=== PATIENT | male | born 1930 | race Caucasian/White ===

== ENCOUNTER 2017-06-01 19:10 | Inpatient (IN) | payer MEDICARE, BC ==
[~2017-06-01] VITALS: Ht 162.6 cm; Wt 70.0 kg
--- NOTE | ~2017-06-01 | HP ---
Unit #: [id number] #: [id number] Patient: MELVI CRESPO [id number] [address] [place], [place] [address] [id number] I MR#: [id number] NAME: MELVI CRESPO. ROOM: 568 Age: 86 Sex: M Admission Date: 06/01/2017 : 1930 Attending Physician: Ernesto Hamlin M.D. Primary Care Physician: Marquez Cavanaugh M.D. HISTORY AND PHYSICAL CHIEF COMPLAINT Shortness of breath. HISTORY OF PRESENT ILLNESS This is an 86-year-old gentleman who has a past medical history significant for history of endstage chronic obstructive pulmonary disease, oxygen dependent, diabetes, anxiety/depression, coronary artery disease, dementia with behavioral changes, hypertrophy, urinary retention with indwelling Claire catheter, hypertension, arthritis, dyslipidemia, hard of hearing. He lives alone. Primary care is his daughter, who frequently visits him. She is at the bedside. As per her, the patient recently has been having some violent hallucinations and he was taken to [facility] and was admitted to 23-hour observation. He was discharged on Saturday and was told to have urinary tract infection, was given some antibiotic and was discharged home. The daughter said he went to her house four days ago and has been having worsening shortness of breath and had oxygen saturation on the lower side. She said it was time to go to the emergency room, but he declined. With worsening symptoms today he told her he wanted to go to the emergency room and he came to [facility] and eventually has been admitted here for chronic obstructive pulmonary disease exacerbation. He is a rather poor historian. He denies any chest pain. He is having some dry cough, but no nausea or vomiting. No abdominal pain or any other complaints. PAST MEDICAL HISTORY 1. History of chronic obstructive pulmonary disease, endstage and oxygen dependent. 2. Diabetes. 3. Anxiety/depression. 4. Coronary artery disease with previous coronary artery bypass grafting. 5. Gastroesophageal reflux disease. 6. Dementia with behavioral changes. 7. Hypertrophy/urinary retention with indwelling Claire catheter. 8. Hypothyroid. 9. Hypertension. 10. History of arthritis. 11. Dyslipidemia. 12. Hard of hearing. PAST SURGICAL HISTORY 1. Appendectomy. 2. Coronary artery bypass grafting. 3. History of partial colon resection for diverticulitis. Unit #: [id number] #: [id number] Patient: MELVI CRESPO SOCIAL HISTORY The patient is a former smoker. He smoked his whole life, but quit 30 years ago. Denies alcohol Denies illicit drug use. Currently lives at home alone. FAMILY HISTORY Mother had stomach cancer. ALLERGIES No known drug allergies. HOME MEDICATIONS 1. Flomax 0.4 mg daily. 2. Singulair 10 mg daily. 3. Amantadine 10 mg daily. 4. Coreg 6.25 mg half tablet b.i.d. 5. Zoloft 100 mg at night. 6. Lorazepam 0.5 mg at night. 7. Prednisone 10 mg half tablet daily. 8. Protonix 40 mg at night. 9. Seroquel 25 mg at night. 10. Proscar 5 mg daily. 11. Glipizide 5 mg daily. 12. Levothyroxine 25 mcg daily. 13. Breo Ellipta inhaler 1 puff daily. 14. Albuterol nebulizer t.i.d. 15. Metformin 500 mg b.i.d. REVIEW OF SYSTEMS Negative except as per history of present illness. PHYSICAL EXAMINATION GENERAL: Elderly man lying in the bed comfortably. Currently not in any distress. He is alert, awake and oriented times one. VITALS: Currently, blood pressure 143/60, heart rate 80, respiratory rate 18, oxygen saturation 96%, temperature 98. HEENT: Pupils equal and reactive to light and accommodation. Head is normocephalic, atraumatic. NECK: Supple. No jugular venous distension. No thyromegaly. LUNGS: Poor air entry bilaterally. HEART: S1 and S2. Regular rate and rhythm. ABDOMEN: Soft, nontender and nondistended. Bowel sounds positive. EXTREMITIES: Inspection normal. No cyanosis. No clubbing. No edema. NEUROLOGIC: No focal neurologic deficits. Cranial nerves II through XII intact. Moving all extremities. SKIN: Warm and dry. DIAGNOSTIC STUDIES IMAGING: Chest x-ray shows trace pleural effusion versus chronic bilateral atelectasis with severe emphysema. LABORATORY: White blood cell count 6.9, hemoglobin 13, hematocrit 40, platelets 138. Urinalysis is negative. Sodium 136, potassium 4.4, chloride 101, CO2 27, glucose 191, BUN 9, creatinine 1.30. LFTs within normal limits. Lactic acid level 3.3. ABG, pH 7.39, CO2 43, O2 96. BNP 95, troponin 0.00. Unit #: [id number] #: [id number] Patient: MELVI CRESPO CARDIOVASCULAR: EKG, right bundle branch block. ASSESSMENT/PLAN 1. Acute exacerbation of chronic obstructive pulmonary disease, oxygen dependent. Will place the patient on IV Rocephin, Zithromax, nebulizer, IV Solu-Medrol. 2. Diabetes. Continue glipizide. Place on sliding scale. 3. History of endstage chronic obstructive pulmonary disease, oxygen dependent. 4. History of anxiety/depression. 5. Dementia with behavioral changes. Recently has been having hallucinations. 6. Coronary artery disease with previous coronary artery bypass grafting. 7. Gastroesophageal reflux disease. 8. History of (1) urinary retention with indwelling Claire catheter. 9. Hypothyroid on Synthroid. Recheck TSH. 10. History of hypertension. 11. Arthritis. 12. History of dyslipidemia. 13. Hard of hearing. 14. DVT prophylaxis. Will place the patient on Lovenox. Dictated by Stephanie Gallo TD: 06/02/2017 07:30 JOB #: [id number] HISTORY AND PHYSICAL Page 1 of 1 X X HISTORY AND PHYSICAL
--- NOTE | ~2017-06-01 | CO ---
Unit #: [id number] #: [id number] Patient: MELVI CRESPO [id number] [facility] [address] [facility]. [place], [place] [address] [id number] I MR#: [id number] NAME: MELVI CRESPO. ROOM: 568 Age: Sex: M Admission Date: 06/01/2017 : 1930 Attending Physician: Melanie Borrego M.D. Primary Care Physician: Marquez Cavanaugh M.D. Consultation Date: 06/02/2017 CONSULTATION REPORT REASON FOR CONSULTATION Hallucination, problem with memory, anxiety. HISTORY OF PRESENT ILLNESS Mr. Melvi Crepso is an 86-year-old white male, seen in room 568, bed 1 on 06/02/2017 at [facility]. The patient dressed casually in hospital attire, sitting comfortably in bed. The patient's family was at the bedside. The patient was somewhat hard of hearing. Reported seeing things, visual hallucination. The patient reported seeing people coming to his room, seeing numbers and alphabets on the wall. The patient also having trouble with anxiety, depression. Denied any suicidal or homicidal ideation. Denied any auditory hallucination or any command hallucination. The patient was, however, pleasant, cooperative, and was somewhat upset about these hallucination. The patient reports that he lives alone and has a caregiver. The patient was admitted due to shortness of breath in the hospital. The patient's vital signs; temperature 98.2, pulse rate 84, respirations 16, blood pressure 133/61, and oxygen saturation 95%. PAST PSYCHIATRIC HISTORY Remarkable for history of depression, anxiety, hallucination, and dementia. MEDICAL HISTORY Remarkable for history of COPD, end-stage oxygen-dependent; DNR; diabetes; anxiety; depression; coronary artery disease with bypass grafting; GERD; hypothyroidism; hypertension; dyslipidemia; poor hearing; arthritis. MEDICATION HISTORY The patient is on Flomax, Singulair, amantadine, Coreg, Zoloft 100 mg at bedtime, lorazepam 0.5 mg at bedtime, prednisone, Protonix, Seroquel 25 mg at bedtime, Proscar, glipizide, levothyroxine, albuterol, metformin. FAMILY HISTORY AND SOCIAL HISTORY The patient has a good support, but lives alone. No history of abuse or substance abuse. REVIEW OF SYSTEMS Complete review of system is unremarkable except as mentioned above. MENTAL STATUS EXAMINATION The patient's vital signs, please see above. General appearance; the patient dressed casually, sitting comfortably in bed. The patient was able to give information, no agitation, able to described hallucination. Attention span and concentration, poor. Speech, somewhat loud, but Unit #: [id number] #: [id number] Patient: MELVI CRESPO regular rate. Oriented in place and person, but noted some confusion. Mood and affect, labile. Thought process, circumstantial. Thought content, the patient denied any thoughts of harming self or others, but reported visual hallucination as mentioned above. Denied any command hallucination or auditory hallucination. Recent and remote memory, fair to slightly impaired. Language, fair. Fund of knowledge, fair to slightly impaired. Insight and judgment, fair to slightly impaired. DIAGNOSES Psychiatric: Major neurocognitive disorder secondary to Alzheimer disease with behavioral disturbances, F02.81; major depressive disorder, recurrent, severe, F33.2; psychosis, not otherwise specified, F29.0. Secondary diagnosis: Deferred. Medical diagnosis: Please refer to H and P. Stressors: Psychosocial stressors. ASSESSMENT/PLAN 1. Supportive psychotherapy and psychoeducation provided to the patient. 2. Educated about benefits and side effects of medication and course and prognosis of illness and also to the family. 3. Recommending at this time to discontinue Seroquel and replace that with Risperdal 0.5 mg b.i.d. Advised to lower the Zoloft to 50 mg at bedtime. Continue with Namenda. Advised to add trazodone 25 mg q.h.s. p.r.n. for sleep and Vistaril 25 mg b.i.d. Based on the current examination and the patient's functioning and current symptomatology, we are recommending that the patient should not be living by himself and needed to be in a supervised living facility. For which, we are recommending the patient's managed care liaison to discuss with family. Please feel free to call if any question, telephone #[phone]. Dictated by... Rc Diaz M.D. FLAKO/cayetano TD: 06/03/2017 12:24 JOB #: [id number] CONSULTATION REPORT Page 1 of 1 X Rc Diaz MD CONSULTATION REPORT
--- NOTE | ~2017-06-01 | CR63 ---
[facility] A Service of [facility] & [facility] RADIOLOGY TEXT RESULTS PATIENT: MELVI CRESPO LOCATION: [facility] 568-01 : [birth year] UNIT #: [id number] AGE: [address]: Melanie Borrego MD SEX: M ORDER DR: [id number] [facility] [address] [facility]. [place], [place] [address] [id number] MR#: [id number] Acc #: [id number] NAME: MELVI CRESPO. : 1930 SEX: M STUDY DATE/TIME: 06/03/2017 7:07 UNIT: [facility] ROOM: [facility] STUDY DESCRIPTION: CR Chest 2 View Attending Physician: Melanie Borrego M.D. Ordering Physician: Ernesto Hamlin M.D. Primary Care Physician: Marquez Cavanaugh M.D. MEDICAL IMAGING REPORT This report is preliminary unless electronic signature is present EXAM Chest PA and lateral, 06/03/2017. HISTORY Shortness of breath today, COPD exacerbation. Benign essential hypertension. Smoking history, coronary artery disease and coronary artery bypass graft surgery. FINDINGS The cardiac and mediastinal structures are stable compared with 06/01/2017 status post median sternotomy. Pleural thickening blunts the left costophrenic angle. There is discoid atelectasis at the lung bases. The lungs are otherwise clear. There are no pleural effusions. IMPRESSION Prior median sternotomy. No active pulmonary disease. Dictated by... Yohannes Daniels M.D. THIS IS AN ELECTRONICALLY VERIFIED REPORT Yohannes Daniels M.D. at 06/04/2017 7:16 AM KRT/derrick TD: 06/03/2017 13:29 JOB #: [id number] MEDICAL IMAGING REPORT Page 1 of 1 COPY
--- NOTE | ~2017-06-01 | CO ---
Unit #: [id number] #: [id number] Patient: MELVI CRESPO [id number] [address] [place], [place] [address] [id number] I MR#: [id number] NAME: MELVI CRESPO. ROOM: 568 Age: 86 Sex: M Admission Date: 06/01/2017 : 1930 Attending Physician: Melanie Borrego M.D. Primary Care Physician: Marquez Cavanaugh M.D. Consultation Date: 06/05/2017 CONSULTATION REPORT REASON FOR CONSULTATION Followup. DISCUSSION Mr. Melvi Crespo is an 86-year-old male, seen in room 558, bed 1 on 06/05/2017. The patient dressed casually, seems somewhat anxious, nervous, guarded. The patient was attending to internal stimuli. Extremely paranoid, some agitation, anxiety, poor memory, confusion. Vital signs; temperature 98.4, pulse 89, respirations 16, blood pressure 144/64, and oxygen saturation 100%. REVIEW OF SYSTEMS Complete review of system is unremarkable. MENTAL STATUS EXAMINATION General appearance; the patient dressed casually. Attention span and concentration, poor. Speech, rapid. Oriented in place and person. Mood and affect, labile. Thought process, circumstantial. Thought content, guarded, paranoid, hallucination, visual hallucination. Recent and remote memory, poor. Language, fair. Fund of knowledge, poor. Insight and judgment, fair to slightly impaired. 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 ASSESSMENT/PLAN 1. Supportive psychotherapy and psychoeducation provided to the patient and family. 2. Educated about benefits and side effects of medication and course and prognosis of illness. 3. Advised to continue with current medication Zoloft and Risperdal. Advised to add Haldol 1 mg b.i.d. If needed, consider further adjustment of medication. Please feel free to call if any questions, telephone #[phone]. Dictated by... Stephanie Funez/cayetano Unit #: [id number] #: [id number] Patient: MELVI CRESPO TD: 06/06/2017 19:29 JOB #: [id number] CONSULTATION REPORT Page 1 of 1 X Rc Diaz MD X CONSULTATION REPORT
--- NOTE | ~2017-06-01 | CO ---
Unit #: [id number] #: [id number] Patient: MELVI CRESPO [id number] [place], [place] [address] [id number] I MR#: [id number] NAME: MELVI CRESPO. ROOM: 568 Age: 86 Sex: M Admission Date: 06/01/2017 : 1930 Attending Physician: Melanie Borrego M.D. Primary Care Physician: Nader Cavanaugh Consultation Date: 06/04/2017 CONSULTATION REPORT REASON FOR CONSULTATION Followup. DISCUSSION Mr. Melvi Crespo is an 86-year-old white male, seen in room 568, bed 1 on 06/04/2017 at [facility]. The patient dressed casually in hospital attire, sitting comfortably in bed. The patient's speech was somewhat rambling, rapid, guarded, paranoid, and talking to himself. Attending to internal stimuli. The patient's family was at the bedside, who reported that the patient is having a lot of problem with psychosis, much worse this morning. The patient did not show any agitation, redirectable, and cooperative. The patient was started on prednisone 30 mg daily recently. The patient denied any side effects from medication. Denied any thoughts of harming self or others. The patient's vital signs; temperature 98.3, pulse rate 104, respirations 18, blood pressure 139/75, and oxygen saturation 98%. REVIEW OF SYSTEMS Complete review of systems unremarkable except as mentioned above. MENTAL STATUS EXAMINATION General appearance; the patient dressed casually in hospital attire, sitting comfortably in bed, seemed somewhat anxious. Attention span and concentration, poor. Speech, slow in rate, somewhat rambling. Oriented in place and person. Mood and affect, labile. Thought process, circumstantial. Thought content, guarded and paranoid. Recent and remote memory, poor. Language, fair. Fund of knowledge, fair. Insight and judgment, fair to slightly impaired. DIAGNOSES Psychiatric: Major neurocognitive disorder secondary to Alzheimer disease with behavioral disturbances, F02.81; psychosis, not otherwise specified, F29.0; major depressive disorder, recurrent, severe, F33.2. ASSESSMENT/PLAN 1. Supportive psychotherapy and psychoeducation provided to the patient and family. 2. Educated about benefits and side effects of medication and course and prognosis of illness. 3. Recommending at this time to increase Risperdal to 1 mg b.i.d., possibly prednisone may be causing problem with hallucination. If needed, consider further adjustment of medication. Please feel free to call if any question, telephone #[phone]. Unit #: [id number] #: [id number] Patient: CHERIEMELVI Dictated by... Stephanie Funez/cayetano TD: 06/04/2017 22:03 JOB #: [id number] CONSULTATION REPORT Page 1 of 1 X Rc Diza MD X CONSULTATION REPORT
--- NOTE | ~2017-06-01 | CO ---
Unit #: [id number] #: [id number] Patient: MELVI CRESPO [id number] [facility]. [place], [place] [address] [id number] I MR#: [id number] NAME: MELVI CRESPO. ROOM: 568 Age: 86 Sex: M Admission Date: 06/01/2017 : 1930 Attending Physician: Melanie Borrego M.D. Primary Care Physician: Marquez Cavanaugh M.D. Consultation Date: 06/07/2017 CONSULTATION REPORT REASON FOR CONSULTATION Followup. DISCUSSION Mr. Melvi Crespo is an 86-year-old white male, seen in room 568, bed 1 on 06/07/2017 at [facility]. The patient interviewed, chart reviewed, and obtained information from nursing staff, also obtained information from the patient's family. The patient is still having problem with the hallucination and confusion. The patient was living by himself and was supervised by his family 3 to 4 times a day. The patient's vital signs; temperature 98.7, pulse 86, respirations 18, blood pressure 115/58, and oxygen saturation 97%. The patient denied any thoughts of harming self or others, but still having significant hallucination, agitation, anxiety. REVIEW OF SYSTEMS Complete review of system is unremarkable. MENTAL STATUS EXAMINATION General appearance; the patient dressed casually, sitting comfortably in a recliner. Attention span and concentration, poor. Speech, rapid. Orientation in self and place. Mood and affect, labile. Thought process, circumstantial. Thought content; guarded, paranoid, attending to internal stimuli, visual and auditory hallucination. Denied any thoughts of harming self or others. Recent and remote memory, poor. Language, fair. Fund of knowledge, poor. Insight and judgment, impaired. DIAGNOSES 1. Psychiatric: Major neurocognitive disorder secondary to Alzheimer disease with behavioral disturbances, F02.81. 2. Psychosis, not otherwise specified, F29.0. ASSESSMENT/PLAN 1. Supportive psychotherapy and psychoeducation provided to the patient. 2. Educated about benefits and side effects of medication and course and prognosis of illness. The patient unable to comprehend much, also explained to the family about treatment plan. Recommending at this time, the patient to be transferred to Geropsych Unit for further stabilization. In the meantime, continue with current medication. Please feel free to call if any questions, telephone #[phone]. Dictated by... Rc Diaz M.D. Unit #: [id number] #: [id number] Patient: MELVI CRESPO FLAKO/modl TD: 06/07/2017 18:05 JOB #: [id number] CONSULTATION REPORT Page 1 of 1 X Rc Diaz MD X CONSULTATION REPORT
--- NOTE | ~2017-06-01 | DS ---
Unit #: [id number] #: [id number] Patient: MELVI CRESPO [id number] [address] [address] [id number] I MR#: [id number] NAME: MELVI CRESPO. ROOM: 568 Age: 86 Sex: M Admission Date: 06/01/2017 : 1930 Discharge Date: Attending Physician: Melanie Borrego M.D. Primary Care Physician: Nader Cavanaugh DISCHARGE SUMMARY DISCHARGE DIAGNOSES 1. Methicillin-resistant Staphylococcus aureus urinary tract infection. 2. Acute chronic obstructive pulmonary disease with exacerbation. 3. Acute on chronic psychosis. 4. End-stage chronic obstructive pulmonary disease. 5. Anxiety. 6. Depression. 7. History of Alzheimer dementia with behavioral changes. 8. Gastroesophageal reflux disease. 9. Coronary artery disease, status post coronary artery bypass grafting. 10. Hypertension. 11. Arthritis. 12. Hyperlipidemia. 13. Benign prostatic hypertrophy with urinary retention. 14. Acute on chronic hypoxic respiratory failure. 15. Hard of hearing. 16. Hyperlipidemia. CONSULTATION Dr. Diaz. PROCEDURE None. DIAGNOSTIC STUDIES LABORATORY: Glucose 103, sodium 140, potassium 4.5, creatinine 1.1. WBC 6.7, hemoglobin 11.9, platelets 117,00. WBC 6.9, hemoglobin 12.1, platelets 106,000. Urine cultures are growing MRSA which is sent to [facility]. Sensitivities showing tetracycline and sensitive to Bactrim and sensitive to vancomycin, resistant to clindamycin. Lactic acid 1. TSH 1.05. ALLERGIES None. DISCHARGE MEDICATIONS 1. Albuterol one inhalation three times daily p.r.n. shortness of breath. 2. Flomax 0.4 p.o. daily. 3. Zoloft 50 mg in the morning and 25 at bedtime. 4. Haloperidol 1 mg p.o. b.i.d. 5. Risperdal 1 mg p.o. b.i.d. 6. Vistaril 25 p.o. b.i.d. 7. Ativan 0.5 at bedtime. 8. Milk of Magnesia 30 mL q.6 p.r.n. constipation. Unit #: [id number] #: [id number] Patient: MELVI CRESPO 9. Namenda 10 mg daily. 10. Breo one inhalation daily. 11. Proscar 5 daily. 12. Singulair 10 daily. 13. Aspirin 325 daily. 14. Protonix 40 daily. 15. Glucotrol XL 5 mg daily. 16. Levothyroxine 25 mcg p.o. daily. 17. Vitamin D 1000 daily. 18. Bactrim DS one tablet p.o. b.i.d. for five days. HOSPITALIZATION COURSE An 86 year old admitted because of increased confusion. MRSA urinary tract infection: Patient was started on IV vancomycin. Cultures were sensitive to doxycycline and Bactrim. I am going to discharge patient on Bactrim for five more days. Increased confusion secondary to acute on chronic psychosis: The patient does have a history of anxiety and depression. Patient is seen by Dr. Diaz. Multiple medications have been adjusted. Dr. Diaz is going to take care of medications at discharge. Treatment as per Dr. Diaz. Acute on chronic hypoxic respiratory failure from COPD: Patient received IV Solu-Medrol, but his psychosis got worse so prednisone and Solu-Medrol have been discontinued. Currently, he is breathing better. Continue with albuterol. Diabetes mellitus type 2: Uncontrolled. Will continue with medications. Patient did receive sliding scale, currently well controlled. Discussed with daughter and discussed with son and [id number]. They all agree. The patient is much better and he can be discharged. At some point, it was thought that he will be eligible for [facility] but family thinks he is more stable to go home. He does have mild hallucinations currently. I am waiting on the daughter to come and see the patient and talk to the case management and school social worker and decide which way to go, either he goes to [facility] or home. The patient is medically stable to [facility] in case the family agrees him to go there. If family decides to take him home, then patient will be discharged home. [facility] Dr. Diaz is aware of the situation. Patient does need close monitoring and follow with psychiatrist because of acute hallucinations. Discharge time taken is 40 minutes. Dictated by... Melanie Borrego M.D. Ronny TD: 06/07/2017 12:44 JOB #: [id number] Unit #: [id number] #: [id number] Patient: MELVI CRESPO DISCHARGE SUMMARY Page 1 of 1 X Melanie Borrego MD DISCHARGE SUMMARY
[2017-06-01] MEDS ORDERED: FLOMAX0.4 M1 PO (21:19)
[2017-06-01] MEDS ORDERED: ASPIRIN ENTERI325 M1 PO (21:19)
[2017-06-01] MEDS ORDERED: SINGULAIR PO ×2 (21:28→21:34)
[2017-06-01] MEDS ORDERED: MEMANTINE HCL10 MG PO (21:28)
[2017-06-01] MEDS ORDERED: ATIVAN0.5 MG PO (21:29)
[2017-06-01] MEDS ORDERED: COREG6.25 M1 PO (21:29)
[2017-06-01] MEDS ORDERED: SERTRALINE HCL100 MG PO (21:29)
[2017-06-01] MEDS ORDERED: PREDNISONE5 M1 PO (21:30)
[2017-06-01] MEDS ORDERED: PROTONIX PO (21:30)
[2017-06-01] MEDS ORDERED: GLIPIZIDE XL5 MG PO (21:31)
[2017-06-01] MEDS ORDERED: PROSCAR5 MG PO (21:31)
[2017-06-01] MEDS ORDERED: SEROQUEL PO (21:31)
[2017-06-01] MEDS ORDERED: LEVOTHYROXINE25 MC1 PO (21:32)
[2017-06-01] MEDS ORDERED: BREO ELLIPTA 11 EACH INH (21:32)
[2017-06-01] MEDS ORDERED: ALBUTEROL2.5 MG/3 M INH (21:33)
[2017-06-01] MEDS ORDERED: GLUCOPHAGE500 MG PO (21:33)
[2017-06-01] MEDS ORDERED: FINASTERIDE1 MG PO (21:34)
[2017-06-01] MEDS ORDERED: VITAMIN D1000 UNIT PO (21:34)
[2017-06-02 06:16] LABS: BASOPHIL% 0.2 % (0-2.5); EOSINOPHIL% 0.2 % (0.0-7.0); HEMATOCRIT 38.4 % (38.0-50.0); HEMOGLOBIN 12.8 gm/dL (13.0-16.0); LYMPHOCYTE% 16.3 % (17.0-45.0); MEAN CELL VOLUME 87.7 FL (83-96); MEAN CORPUSCULAR HEMOGLOBIN 29.3 PG (28-34); MEAN CORPUSCULAR HGB CONC 33.4 g/dL (30-36); MEAN PLATELET VOLUME 7.3 FL (6.5-11.5); MONOCYTE# 0.2 X10e3 (0-1.0); MONOCYTE% 2.4 % (3.0-12.0); NEUTROPHIL% 80.9 % (40-75); PLATELET COUNT 109 X10e3 (140-420); RED BLOOD COUNT 4.37 X10e (3.90-5.60); RED CELL DISTRIBUTION WIDTH 13.9 % (11.0-15.5); WHITE BLOOD COUNT 6.2 X10e3 (4.0-10.5)
[2017-06-02 06:25] LABS: DIFF IND NO
[2017-06-02 06:49] LABS: BUN/CREATININE RATIO 15.38; CALCIUM SERUM 8.6 mg/dL (8.4-10.2); CREATININE SERUM 1.3 mg/dL (0.6-1.4); GLOM FILT RATE Estimated 49.1 mL/min (>60)
[2017-06-02 06:52] LABS: POTASSIUM 5.5 mmol/L (3.5-5.1)
[2017-06-02 23:30] LABS: BLOOD UREA NITROGEN 31 mg/dL (9-23); BUN/CREATININE RATIO 22.14; CALCIUM SERUM 8.3 mg/dL (8.4-10.2); CARBON DIOXIDE 26 mmol/L (22-31); CHLORIDE 104 mmol/L (100-111); CREATININE SERUM 1.4 mg/dL (0.6-1.4); GLOM FILT RATE Estimated 44.9 mL/min (>60); GLUCOSE FASTING 177 mg/dL (70-110); POTASSIUM 4.4 mmol/L (3.5-5.1); SODIUM 137 mmol/L (135-145)
[2017-06-02 23:51] LABS: PROCALCITONIN <0.05 NG/ML
[2017-06-04 05:16] LABS: HEMATOCRIT 35.8 % (38.0-50.0); HEMOGLOBIN 12.1 gm/dL (13.0-16.0); MEAN CELL VOLUME 87.7 FL (83-96); MEAN CORPUSCULAR HEMOGLOBIN 29.6 PG (28-34); MEAN CORPUSCULAR HGB CONC 33.7 g/dL (30-36); MEAN PLATELET VOLUME 7.2 FL (6.5-11.5); RED BLOOD COUNT 4.08 X10e (3.90-5.60); RED CELL DISTRIBUTION WIDTH 13.8 % (11.0-15.5); WHITE BLOOD COUNT 7.3 X10e3 (4.0-10.5)
[2017-06-04 06:02] LABS: BUN/CREATININE RATIO 24.54; CALCIUM SERUM 8.5 mg/dL (8.4-10.2); CREATININE SERUM 1.1 mg/dL (0.6-1.4); GLOM FILT RATE Estimated 60.1 mL/min (>60); POTASSIUM 4.3 mmol/L (3.5-5.1)
[2017-06-05 07:14] LABS: HEMOGLOBIN 12.1 gm/dL (13.0-16.0); MEAN CELL VOLUME 88.7 FL (83-96); MEAN CORPUSCULAR HEMOGLOBIN 29.1 PG (28-34); MEAN CORPUSCULAR HGB CONC 32.8 g/dL (30-36); MEAN PLATELET VOLUME 7.9 FL (6.5-11.5); RED BLOOD COUNT 4.17 X10e (3.90-5.60); RED CELL DISTRIBUTION WIDTH 14.3 % (11.0-15.5); WHITE BLOOD COUNT 6.9 X10e3 (4.0-10.5)
[2017-06-05 07:44] LABS: BUN/CREATININE RATIO 22.5; CALCIUM SERUM 8.8 mg/dL (8.4-10.2); CREATININE SERUM 1.2 mg/dL (0.6-1.4); GLOM FILT RATE Estimated 54.1 mL/min (>60); POTASSIUM 4.5 mmol/L (3.5-5.1)
[2017-06-06 05:20] LABS: HEMATOCRIT 35.5 % (38.0-50.0); HEMOGLOBIN 11.9 gm/dL (13.0-16.0); MEAN CELL VOLUME 87.8 FL (83-96); MEAN CORPUSCULAR HEMOGLOBIN 29.4 PG (28-34); MEAN CORPUSCULAR HGB CONC 33.4 g/dL (30-36); MEAN PLATELET VOLUME 7.1 FL (6.5-11.5); RED BLOOD COUNT 4.04 X10e (3.90-5.60); RED CELL DISTRIBUTION WIDTH 14.3 % (11.0-15.5); WHITE BLOOD COUNT 6.7 X10e3 (4.0-10.5)
[2017-06-06 06:23] LABS: BUN/CREATININE RATIO 20.9; CALCIUM SERUM 8.6 mg/dL (8.4-10.2); CREATININE SERUM 1.1 mg/dL (0.6-1.4); GLOM FILT RATE Estimated 60.1 mL/min (>60); POTASSIUM 4.5 mmol/L (3.5-5.1)
[2017-06-07] MEDS ORDERED: BACTRIM DS TAB1 EACH PO (16:01)
[2017-06-07] MEDS ORDERED: DESYREL50 MG PO (16:06)
[2017-06-07] MEDS ORDERED: HALOPERIDOL1 MG PO (16:07)
[2017-06-07] MEDS ORDERED: RISPERDAL1 M1 PO (16:10)
[2017-06-07] MEDS ORDERED: VISTARIL PO (16:11)
[2017-06-07] MEDS ORDERED: ATIVAN0.5 MG PO (16:17)
[2017-06-07] MEDS ORDERED: MILK OF MAGNESIA PO (16:18)
[2017-06-07] MEDS ORDERED: RISPERIDONE PO (17:02)
[2017-06-07] MEDS ORDERED: ZOLOFT PO (17:05)
== END 2017-06-07 18:00 | disposition home or self-care (01) | DRG 190 ==
LOC: C5C 19:10 → UNDOADMIN 19:10 → C5C 21:45
PROVIDERS: Internal Medicine
DX: J44.1 Chronic obstructive pulmonary disease with (acute) exacerbation (principal); J96.21 Acute and chronic respiratory failure with hypoxia; E11.65 Type 2 diabetes mellitus with hyperglycemia; N39.0 Urinary tract infection, site not specified; F02.81 Dementia in other diseases classified elsewhere, unspecified severity, with behavioral disturbance; F33.2 Major depressive disorder, recurrent severe without psychotic features; B95.62 Methicillin resistant Staphylococcus aureus infection as the cause of diseases classified elsewhere; F29 Unspecified psychosis not due to a substance or known physiological condition; F41.9 Anxiety disorder, unspecified; G30.9 Alzheimer's disease, unspecified; K21.9 Gastro-esophageal reflux disease without esophagitis; I25.10 Atherosclerotic heart disease of native coronary artery without angina pectoris; Z95.1 Presence of aortocoronary bypass graft; I10 Essential (primary) hypertension; E78.5 Hyperlipidemia, unspecified; N40.1 Benign prostatic hyperplasia with lower urinary tract symptoms; R33.8 Other retention of urine; H91.90 Unspecified hearing loss, unspecified ear; Z99.81 Dependence on supplemental oxygen; Z66 Do not resuscitate; Z79.84 Long term (current) use of oral hypoglycemic drugs; Z79.52 Long term (current) use of systemic steroids; Z87.891 Personal history of nicotine dependence; M19.90 Unspecified osteoarthritis, unspecified site; Z79.899 Other long term (current) drug therapy
CPT/HCPCS: 71020; 80048; 82308; 82947; 83605; 84443; 85025; 85027; 94640; 94760; 97116; 97161; 97165; 97530; G8978-GP; G8979-GP; G8987-GO; G8988-GO; G8989-GO; J0456; J0696; J1650; J1815; J2920; J3370